=== PATIENT | female | born 1985 | race Caucasian/White ===

== ENCOUNTER 2022-12-30 06:20 | Inpatient (IN) | payer MEDICAID ==
[~2022-12-30] VITALS: Ht 162.6 cm; Wt 67.6 kg
[2022-12-30 06:26] VITALS: BP 121/72; PULSE 72; RESP 14; TEMP 97.9; O2SAT 97
[2022-12-30 07:25] LABS: BASOPHILS % (AUTO) 0.4 % (0.0-2.0); EOSINOPHILS # (AUTO) 0.1 K/uL (0-0.4); EOSINOPHILS % (AUTO) 2.1 % (0.0-4.0); HEMATOCRIT 38.6 % (36-48); HEMOGLOBIN 13.1 g/dL (12.0-16.0); LYMPHOCYTES % (AUTO) 28.8 % (20.5-51.1); MEAN CORPUSCULAR HEMOGLOBIN 30 pg (27-31); MEAN CORPUSCULAR HGB CONC 34 g/dL (33-37); MEAN CORPUSCULAR VOLUME 88.6 fL (80-94); MONOCYTES # (AUTO) 0.5 K/uL (0.8-1.0); MONOCYTES % (AUTO) 7.9 % (1.7-9.3); NEUTROPHILS # (AUTO) 4.2 K/uL (1.8-7.7); NEUTROPHILS % (AUTO) 60.8 % (42.2-75.2); PLATELET COUNT (AUTO) 307 K/uL (140-450); RED BLOOD CELL COUNT(AUTO) 4.35 MIL/uL (4.20-5.40); RED CELL DISTRIBUTION WIDTH 12.5 % (11.6-13.7); WHITE BLOOD COUNT (AUTO) 6.9 K/uL (4.8-10.8)
[2022-12-30 07:36] LABS: ALBUMIN 3.6 g/dL (3.4-5.0); ANION GAP 12.4 (8-16); CALCIUM 8.6 mg/dL (8.5-10.1); CARBON DIOXIDE 26.3 mmol/L (21-32); CREATININE 0.8 mg/dL (0.6-1.3); POTASSIUM 3.7 mmol/L (3.5-5.1); TOTAL BILIRUBIN 0.9 mg/dL (0.0-1.0); TOTAL PROTEIN, SERUM 7.8 g/dL (6.4-8.2)
[2022-12-30 07:42] LABS: LACTIC ACID 1.6 mmol/L (0.4-2.0)
[2022-12-30 08:20] VITALS: O2SAT 97
[2022-12-30] MEDS ORDERED: cefTRIAXone 1,000 MG VIAL ONE (09:03)
[2022-12-30] MEDS ORDERED: NACL 0.9% 1,000 ML IV SCH (09:40)
[2022-12-30] MEDS ORDERED: LIDOCAINE/EPI MPF 1%1:200000 30 ML VIAL INJ ONE (09:45)
[2022-12-30] MEDS ORDERED: BUPIVACAINE-MPF 0.25% 30 ML VIAL INJ ONE (09:45)
[2022-12-30] MEDS ORDERED: SUCCINYLCHOLINE CHLORIDE 200 MG/10 ML VIAL IVP ONE ×2 (10:16→10:53)
[2022-12-30] MEDS ORDERED: ONDANSETRON 4 MG/2 ML VIAL ONE ×2 (10:16→10:54)
[2022-12-30] MEDS ORDERED: PROPOFOL 200 MG/20 ML VIAL IV ONE ×2 (10:16→10:52)
[2022-12-30] MEDS ORDERED: KETOROLAC 30 MG/ML VIAL ONE ×2 (10:16→10:54)
[2022-12-30] MEDS ORDERED: SEVOFLURANE 250 ML BTL INH ONE (10:16)
[2022-12-30] MEDS ORDERED: fentaNYL citrate 0.05 MG/ML VIAL ONE ×2 (10:16→10:25)
[2022-12-30 10:59] VITALS: O2SAT 99
[2022-12-30] MEDS ORDERED: hydrALAZINE 20 MG/ML VIAL IVP PRN (11:09)
[2022-12-30] MEDS ORDERED: LABETALOL 20 MG/4 ML VIAL IVP PRN (11:09)
[2022-12-30] MEDS ORDERED: METOCLOPRAMIDE 10 MG/2 ML INJ VIAL IVP PRN (11:09)
[2022-12-30] MEDS ORDERED: LACTATED RINGERS 1,000 ML IV SCH (11:10)
[2022-12-30] MEDS: HYDROmorphone 1 MG/ML AMP IVP PRN ×2 (11:15→11:25)
[2022-12-30] MEDS ORDERED: HYDROmorphone PFS 2 MG/ML SYR ONE (11:19)
[2022-12-30] MEDS ORDERED: ONDANSETRON 4 MG/2 ML VIAL IVP PRN (11:45)
[2022-12-30] MEDS ORDERED: HYDROcodone/APAP 7.5/325 MG 1 TAB PO PRN (11:45)
[2022-12-30] MEDS ORDERED: POTASSIUM CHLORIDE 10 MEQ TABER PO PRN (11:45)
[2022-12-30] MEDS ORDERED: ACETAMINOPHEN 325 MG TAB PO PRN (11:45)
[2022-12-30] MEDS ORDERED: MAG SULF 2000 MG/WATER PREMIX 50 ML IV PRN (11:45)
[2022-12-30] MEDS ORDERED: PIPERACILLIN/TAZOBACTAM 3.375 GM in DEXTROSE 5% 50 ML IV SCH (13:00)
[2022-12-30 13:24] LABS: INR 1.04 (0.8-1.2); PARTIAL THROMBOPLASTIN TIME 23.3 secs (22-35.6); PROTHROMBIN TIME 10.9 secs (10.8-13.4)
[2022-12-30 13:31] LABS: LACTIC ACID 1.8 mmol/L (0.4-2.0)
[2022-12-30 13:38] LABS: MAGNESIUM 1.6 mg/dL (1.8-2.4); PHOSPHORUS 3.1 mg/dL (2.5-4.9); TRIGLYCERIDES 154 mg/dL (30-150)
[2022-12-30 13:39] LABS: AMYLASE 45 U/L (25-115); CHOL/HDL RATIO 5.3 (1-4.5); CHOLESTEROL 235 mg/dL (<200); FREE T4 (FREE THYROXINE) 1.36 ng/dL (0.76-1.46); HDL CHOLESTEROL 44 mg/dL (40-60); LDL (CALC) 161 mg/dL (60-100); LIPASE 68 U/L (73-393); THYROID STIMULATING HORMONE 1.81 uIU/mL (0.34-3.74)
[2022-12-30 15:36] VITALS: BP 122/86; PULSE 97; RESP 14; TEMP 97.9
[2022-12-30] MEDS ORDERED: DOCUSATE SODIUM 100 MG GELCAP PO SCH (21:00)
[2022-12-31] MEDS ORDERED: PANTOPRAZOLE 40 MG INJ VIAL IVP SCH (09:00)
== END 2022-12-30 16:45 | disposition home or self-care (01) | DRG 363 ==
LOC: MED 06:20 → MTU 09:43
PROC: 0H9T0ZZ Drainage of Right Breast, Open Approach (ICD-10-PCS; 2022-12-30)
PROC: 0HBT0ZX Excision of Right Breast, Open Approach, Diagnostic (ICD-10-PCS; principal; 2022-12-30 10:00)
DX: N61.1 Abscess of the breast and nipple (principal); R01.1 Cardiac murmur, unspecified
CPT/HCPCS: 36415; 71045; 76641; 80053; 82150; 83036; 83605; 83690; 83735; 83880; 84100; 84439; 84443; 84484; 85025; 85610; 85730; 87040; 87070; 87075; 87205; 96365; 99285; J0330; J0696; J1170; J1885; J2001; J2405; J2543; J2704; J3010; J3490; J7060; J7120; Q0092